=== PATIENT | male | born 1980 | race Caucasian/White ===

== ENCOUNTER 2019-04-15 17:50 | Inpatient (IN) ==
[2019-04-15] MEDS ORDERED: LORazepam 1 MG TAB SL STA (18:04)
[2019-04-15] MEDS ORDERED: MULTI-VITAMIN INFUSION 10 ML, THIAMINE HCL 100 MG, FOLIC ACID 1 MG in SODIUM CHLORIDE 0... IV ONE (18:04)
[2019-04-15] MEDS ORDERED: ONDANSETRON INJ 2 MG/ML 2 ML VIAL IV STA (18:06)
[2019-04-15] MEDS ORDERED: LORazepam 1 MG TAB ONE (18:06)
[2019-04-15] MEDS: LORazepam 2 MG/ML VIAL (IM USE) IM STA ×2 (18:16→19:28)
[2019-04-15 18:22] LABS: Basophils # (auto) 0.03 K/uL (0-0.2); Basophils % (auto) 0.3 %; Eosinophils # (auto) 0.01 K/uL (0-0.5); Eosinophils % (auto) 0.1 %; Hematocrit (blood only) 52.8 % (42-52); Hemoglobin 18.9 g/dL (14.0-18.0); Immature Granulocytes # (auto) 0.02 K/uL (0.00-0.02); Immature Granulocytes % (auto) 0.2 %; Lymphocytes % (auto) 17.8 %; Mean Corpuscular Hemoglobin 33.5 pg (25-34); Mean Corpuscular Hgb Conc 35.8 g/dL (32-36); Mean Corpuscular Volume 93.5 fL (80-100); Mean Platelet Volume 9.9 fL (7.4-10.4); Monocytes # (auto) 0.84 K/uL (0.11-0.59); Monocytes % (auto) 9.4 %; Neutrophils # (auto) 6.48 K/uL (1.4-6.5); Neutrophils % (auto) 72.2 %; Platelet Count 242 K/uL (130-400); RDW Coefficient of Variation 12.3 % (11.5-14.5); RDW Standard Deviation 41.9 fL (36.4-46.3); Red Blood Count 5.65 M/uL (4.7-6.1); White Blood Count 8.98 K/uL (4.8-10.8)
[2019-04-15 18:26] LABS: Appearance Urine Clear (Clear); Bacteria Urine Automated Negative (Negative); Blood Urine Negative (Negative); Color Urine Orange; Epithelial Cell Urine Auto >30 /lpf (0-5); Glucose Urine UA Negative (Negative); Ketones Urine 2+ (Negative); Leukocyte Esterase Urine 1+ (Negative); Nitrite Urine Positive (Negative); RBC Urine Automated 0-4 /hpf (0-4); Specific Gravity Urine 1.027 (1.000-1.030); Urobilinogen Urine Negative (Negative); pH Urine 8.5 (4.5-7.5)
[2019-04-15 18:32] LABS: Bilirubin Urine 1+ (Negative); Protein Urine Trace (Negative)
[2019-04-15 18:33] LABS: Ictotest Urine Positive (Negative)
[2019-04-15 18:35] LABS: Sulfosalicylic Acid Urine Positive (Negative)
[2019-04-15 18:36] LABS: Mucus Urine Present (None Prsent)
[2019-04-15 18:38] LABS: Cast Urine Automated 0 /lpf (0-5)
[2019-04-15 18:42] LABS: Albumin Level 4.9 gm/dl (3.4-5.0); BUN Creatinine Ratio 9.1 (10-20); Calcium 10.2 mg/dl (8.5-10.1); Creatinine Clr Calc Pharmacy 95.5 ml/min; Est GFR (African American) 86.6; Est GFR (Non-African American) 74.7; Potassium 4.1 mmol/L (3.5-5.1)
[2019-04-15 18:45] LABS: Bilirubin,Total 1.4 mg/dl (0.2-1); Total Protein 9.9 gm/dl (6.4-8.2)
[2019-04-15] MEDS ORDERED: SODIUM CHLORIDE 0.9% 1000ML 1,000 ML IV ONE (18:52)
[2019-04-15] MEDS ORDERED: FAMOTIDINE 20 MG in SYRINGE 3 ML IV STA (18:55)
--- NOTE | 2019-04-15 18:59 | Emergency Department Note ---
Entered by Nereyda Coffey acting as a scribe for Lida Calles MD History of Present Illness General Chief complaint: Alcohol Withdrawal Stated complaint: RELAPSE FROM ALCOHOL Source: patient History of Present Illness Onset (ago): hour(s) (earlier today) Location: head (general) Pain Consistency: + constant Maximum Pain Intensity: 0 Quality: + other (alcohol withdrawal) Associated symptoms: + loss of appetite, + nausea/vomiting and + other (shaking) The patient is a 39 year old male who presents to the Emergency Room with complaints of constant alcohol withdrawal beginning earlier today. The patient reports vomiting and shaking. He states he has not eaten in 2 days. He states that he was in rehab at [facility] 1.5 - 2 years ago. He reports he started drinking again 3 months ago. The patient reports drinking a 12 pack of beer per day. The patient denies every having a seizure. He reports smoking marijuana once in a while, but denies any time recently. He denies tobacco use. The patient states he is unsure if he wants to go back to a rehab. Home Medications Home Medications Medication Instructions Recorded Confirmed Type bupropion HCl 300 mg PO DAILY 04/15/19 04/15/19 History escitalopram oxalate 20 mg PO DAILY 04/15/19 04/15/19 History lisinopril-hydrochlorothiazide 1 tab PO DAILY 04/15/19 04/15/19 History Allergies Allergy/AdvReac Type Severity Reaction Status Date / Time No Known Allergies Allergy Verified 04/15/19 18:56 Past Med/Surg History Medical History (Updated 04/15/19 @ 22:57 by Becca Shearer RN) Abnormal LFTs (Inactive) Anxiety (Inactive) History of ETOH abuse Surgical History No pertinent past surgical history Family History Other Anxiety Depression Social History Preferred Language: Malagasy Communication Ability: Effective Weld Engineer Required: No Beliefs That Will Affect Care: None Current Living Situation: Other Other Information That Helps Us Care for You: No Feels Safe at Home: Yes Safety Concerns: Feels Safe At This Time Smoking Status: Unknown if ever smoked Hx Alcohol Use: No Hx Substance Use: No Review of Systems See HPI for pertinent positives & negatives. and A total of 10 systems reviewed and were otherwise negative Physical Exam Vital Signs Vital Signs - 24 hr 04/15/19 17:54 04/15/19 18:27 04/15/19 19:00 Temperature 36.4 C L Temperature Source Oral Pulse Rate 136 H Pulse Rate [Right Finger] 112 H 97 H Pulse Rhythm [Right Finger] Regular Respiratory Rate 20 26 H 22 Respiratory Effort / Characteristics Non-Labored Respiratory Depth Normal Blood Pressure 181/110 H Blood Pressure [Right Arm] 181/113 H 182/104 H Blood Pressure Mean 133 Blood Pressure Mean [Right Arm] 135 130 Blood Pressure Position [Right Arm] Lying Lying Pulse Oximetry 95 98 98 Oxygen Delivery Method Room Air Sepsis Recent Fever Within 48 Hours No Sepsis New/Unexplained Change in Mental Status No Sepsis Action Taken by Nursing No Action Required 04/15/19 19:30 04/15/19 20:00 04/15/19 20:30 Temperature 36.5 C Temperature Source Oral Pulse Rate Pulse Rate [Right Finger] 105 H 104 H 96 H Pulse Rhythm [Right Finger] Respiratory Rate 20 20 20 Respiratory Effort / Characteristics Respiratory Depth Blood Pressure Blood Pressure [Right Arm] 146/101 H 161/103 H 182/87 H Blood Pressure Mean Blood Pressure Mean [Right Arm] 116 122 118 Blood Pressure Position [Right Arm] Sitting Sitting Pulse Oximetry 98 98 98 Oxygen Delivery Method Sepsis Recent Fever Within 48 Hours Sepsis New/Unexplained Change in Mental Status Sepsis Action Taken by Nursing 04/15/19 21:03 04/15/19 21:32 Temperature 36.9 C Temperature Source Oral Pulse Rate Pulse Rate [Right Finger] 94 H 104 H Pulse Rhythm [Right Finger] Respiratory Rate 18 20 Respiratory Effort / Characteristics Respiratory Depth Blood Pressure Blood Pressure [Right Arm] 145/89 H 153/93 H Blood Pressure Mean Blood Pressure Mean [Right Arm] 107 113 Blood Pressure Position [Right Arm] Lying Pulse Oximetry 98 98 Oxygen Delivery Method Room Air Sepsis Recent Fever Within 48 Hours Sepsis New/Unexplained Change in Mental Status Sepsis Action Taken by Nursing Vital signs reviewed. Tachycardic, hypertensive General: Agitated 39-year-old male, involuntary tremors HEENT: Conjunctiva injection bilaterally, no scleral icterus, PERRLA, neck supple. Atraumatic. Cardiovascular: Tachycardic rate and regular rhythm, no extra sounds. Pulmonary: Clear to auscultation bilaterally, normal work of breathing. Abdomen: Soft, nontender, nondistended, positive bowel sounds. Musculoskeletal: Atraumatic, no peripheral edema. Neurologic: Patient awake alert and oriented x 3 Skin: Warm, diaphoretic, no rash Course Course 1800: Past medical records reviewed. The patient was evaluated in room C06. A complete history and physical exam was performed. 2014: Upon reevaluation, the patient is feeling better. 2039: Upon reevaluation, I discussed findings and results with the patient. He verbalized agreement of the treatment plan. I spoke with Dr. Guevara of the [facility] Hospitalist Service. The patient will be evaluated for further management and care. Administered Medications Diazepam (Valium) 20 mg PO Q8 RADHA Stop: 04/16/19 14:01 Last Admin: 04/15/19 22:53 Dose: 20 mg Documented by: [id number] Enoxaparin Sodium (Lovenox) 40 mg SQ Q24H RADHA Stop: 05/15/19 22:31 Last Admin: 04/15/19 23:41 Dose: 40 mg Documented by: [id number] Lactated Ringer's (Lr) 1,000 mls @ 120 mls/hr IV .Q8H20M RADHA Stop: 05/15/19 22:31 Last Admin: 04/15/19 22:48 Dose: 120 mls/hr Documented by: [id number] Discontinued Medications Al Hydrox/Mg Hydrox/Simethicone 18 ml/ Lidocaine HCl 6 ml/ BARCODE IDENTIFIER 1 ea 0 ml PO ONE ONE Stop: 04/15/19 23:01 Last Admin: 04/15/19 22:53 Dose: 24 ml Documented by: [id number] Multivitamins 10 ml/ Thiamine HCl 100 mg/ Folic Acid 1 mg/Sodium Chloride 1,011.2 mls @ 1,011.2 mls/hr IV .Q1H ONE Stop: 04/15/19 19:03 Last Infusion: 04/15/19 19:47 Dose: 0 mls/hr Documented by: [id number] Admin: 04/15/19 18:33 Dose: 1,011.2 mls/hr Documented by: [id number] Sodium Chloride (Nss 1000ml) 1,000 mls @ 999 mls/hr IV .Q1H1M ONE Stop: 04/15/19 19:52 Last Infusion: 04/15/19 20:49 Dose: 0 mls/hr Documented by: [id number] Admin: 04/15/19 19:01 Dose: 999 mls/hr Documented by: [id number] Famotidine 20 mg/ Syringe 5 mls @ 2.5 mls/min IV NOW STA Stop: 04/15/19 18:56 Last Admin: 04/15/19 19:36 Dose: 2.5 mls/min Documented by: [id number] Lorazepam (Ativan) 2 mg IM NOW STA Stop: 04/15/19 18:00 Last Admin: 04/15/19 19:28 Dose: 2 mg Documented by: [id number] Lorazepam (Ativan) 2 mg SL NOW STA Stop: 04/15/19 18:05 Last Admin: 04/15/19 18:16 Dose: 2 mg Documented by: [id number] Lorazepam (Ativan) Confirm Administered Dose 2 mg .ROUTE .STK-MED ONE Stop: 04/15/19 18:07 Last Admin: 04/15/19 18:16 Dose: Not Given Documented by: [id number] Ondansetron HCl (Zofran) 4 mg IV NOW STA Stop: 04/15/19 18:07 Last Admin: 04/15/19 18:18 Dose: 4 mg Documented by: [id number] Critical Care Time Critical Care Time: Yes I have personally spent greater than 30 minutes of critical care time in the direct management of this patient. This includes bedside care, interpretation of diagnostic studies, and testing, discussion with consultants, patient, and family members, and other required patient management activities. This 30 minutes is in excess of all separately billable procedures. Medical Decision Making Differential Diagnosis Differential diagnosis:Etiologies such as toxicologic, alcohol withdrawal, infection, hypoglycemia, electrolyte abnormalities, cardiac sources, intracerebral event, neurologic, as well as others were entertained. Medical Records Attestation: I reviewed the patient's medical records. Home Medications Current Medication List: was personally reviewed by me Laboratory Data Attestation: I reviewed the patient's lab results. Result diagrams: 04/15/19 18:12 04/15/19 18:12 Lab Results 04/15/19 04/15/19 04/15/19 Range/Units 18:11 18:12 18:12 WBC 8.98 (4.8-10.8) K/uL RBC 5.65 (4.7-6.1) M/uL Hgb 18.9 H (14.0-18.0) g/dL Hct 52.8 H (42-52) % MCV 93.5 (80-100) fL MCH 33.5 (25-34) pg MCHC 35.8 (32-36) g/dL RDW Std Deviation 41.9 (36.4-46.3) fL RDW Coeff of Francisca 12.3 (11.5-14.5) % Plt Count 242 (130-400) K/uL MPV 9.9 (7.4-10.4) fL Immature Gran % (Auto) 0.2 % Neut % (Auto) 72.2 % Lymph % (Auto) 17.8 % [place] % (Auto) 9.4 % Eos % (Auto) 0.1 % Baso % (Auto) 0.3 % Immature Gran # (Auto) 0.02 (0.00-0.02) K/uL Neut # (Auto) 6.48 (1.4-6.5) K/uL Lymph # (Auto) 1.60 (1.2-3.4) K/uL [place] # (Auto) 0.84 H (0.11-0.59) K/uL Eos # (Auto) 0.01 (0-0.5) K/uL Baso # (Auto) 0.03 (0-0.2) K/uL Sodium 137 (136-145) mmol/L Potassium 4.1 (3.5-5.1) mmol/L Chloride 100 (98-107) mmol/L Carbon Dioxide 30 (21-32) mmol/L Anion Gap 7.0 (3-11) BUN 11 (7-18) mg/dl Creatinine 1.22 (0.6-1.4) mg/dl Est Cr Clr Drug Dosing 95.5 ml/min Est GFR ( Amer) 86.6 Est GFR (Non-Af Amer) 74.7 BUN/Creatinine Ratio 9.1 L (10-20) Glucose 106 H (70-99) mg/dl POC Glucose (70-99) Calcium 10.2 H (8.5-10.1) mg/dl Total Bilirubin 1.4 H (0.2-1) mg/dl AST 207 H (15-37) U/L ALT 199 H (12-78) U/L Alkaline Phosphatase 84 (45-117) U/L Total Creatine Kinase (39-308) U/L Total Protein 9.9 H (6.4-8.2) gm/dl Albumin 4.9 (3.4-5.0) gm/dl Globulin 5.0 H (2.5-4.0) gm/dl Albumin/Globulin Ratio 1.0 (0.9-2) Folate (>5.38) ng/ml Urine Color [place] Urine Appearance Clear (Clear) Urine pH 8.5 H (4.5-7.5) Ur Specific [place] 1.027 (1.000-1.030) Urine Protein Trace H (Negative) Urine Glucose (UA) Negative (Negative) Urine Ketones 2+ H (Negative) Urine Blood Negative (Negative) Urine Nitrite Positive A (Negative) Urine Bilirubin 1+ H (Negative) Urine Urobilinogen Negative (Negative) Ur Leukocyte Esterase 1+ H (Negative) Urine WBC (Auto) 1-5 (0-5) /hpf Urine RBC (Auto) 0-4 (0-4) /hpf U Hyaline Cast (Auto) 0 (0-5) /lpf U Epithel Cells (Auto) >30 H (0-5) /lpf Urine Bacteria (Auto) Negative (Negative) Ur Renal Epithelial Cell 5-10 H (0-5) /lpf Urine Mucus Present A (None Prsent) Ethyl Alcohol mg/dL (0-3) mg/dl Hep Bs Antigen (Neg) Hepatitis C Antibody (Neg) 04/15/19 04/15/19 04/15/19 Range/Units 18:12 18:12 18:15 WBC (4.8-10.8) K/uL RBC (4.7-6.1) M/uL Hgb (14.0-18.0) g/dL Hct (42-52) % MCV (80-100) fL MCH (25-34) pg MCHC (32-36) g/dL RDW Std Deviation (36.4-46.3) fL RDW Coeff of Francisca (11.5-14.5) % Plt Count (130-400) K/uL MPV (7.4-10.4) fL Immature Gran % (Auto) % Neut % (Auto) % Lymph % (Auto) % [place] % (Auto) % Eos % (Auto) % Baso % (Auto) % Immature Gran # (Auto) (0.00-0.02) K/uL Neut # (Auto) (1.4-6.5) K/uL Lymph # (Auto) (1.2-3.4) K/uL [place] # (Auto) (0.11-0.59) K/uL Eos # (Auto) (0-0.5) K/uL Baso # (Auto) (0-0.2) K/uL Sodium (136-145) mmol/L Potassium (3.5-5.1) mmol/L Chloride (98-107) mmol/L Carbon Dioxide (21-32) mmol/L Anion Gap (3-11) BUN (7-18) mg/dl Creatinine (0.6-1.4) mg/dl Est Cr Clr Drug Dosing ml/min Est GFR ( Amer) Est GFR (Non-Af Amer) BUN/Creatinine Ratio (10-20) Glucose (70-99) mg/dl POC Glucose 107 H (70-99) Calcium (8.5-10.1) mg/dl Total Bilirubin (0.2-1) mg/dl AST (15-37) U/L ALT (12-78) U/L Alkaline Phosphatase (45-117) U/L Total Creatine Kinase 567 H (39-308) U/L Total Protein (6.4-8.2) gm/dl Albumin (3.4-5.0) gm/dl Globulin (2.5-4.0) gm/dl Albumin/Globulin Ratio (0.9-2) Folate (>5.38) ng/ml Urine Color Urine Appearance (Clear) Urine pH (4.5-7.5) Ur Specific [place] (1.000-1.030) Urine Protein (Negative) Urine Glucose (UA) (Negative) Urine Ketones (Negative) Urine Blood (Negative) Urine Nitrite (Negative) Urine Bilirubin (Negative) Urine Urobilinogen (Negative) Ur Leukocyte Esterase (Negative) Urine WBC (Auto) (0-5) /hpf Urine RBC (Auto) (0-4) /hpf U Hyaline Cast (Auto) (0-5) /lpf U Epithel Cells (Auto) (0-5) /lpf Urine Bacteria (Auto) (Negative) Ur Renal Epithelial Cell (0-5) /lpf Urine Mucus (None Prsent) Ethyl Alcohol mg/dL < 3.0 (0-3) mg/dl Hep Bs Antigen (Neg) Hepatitis C Antibody (Neg) 04/15/19 04/15/19 Range/Units 19:14 19:14 WBC (4.8-10.8) K/uL RBC (4.7-6.1) M/uL Hgb (14.0-18.0) g/dL Hct (42-52) % MCV (80-100) fL MCH (25-34) pg MCHC (32-36) g/dL RDW Std Deviation (36.4-46.3) fL RDW Coeff of Francisca (11.5-14.5) % Plt Count (130-400) K/uL MPV (7.4-10.4) fL Immature Gran % (Auto) % Neut % (Auto) % Lymph % (Auto) % [place] % (Auto) % Eos % (Auto) % Baso % (Auto) % Immature Gran # (Auto) (0.00-0.02) K/uL Neut # (Auto) (1.4-6.5) K/uL Lymph # (Auto) (1.2-3.4) K/uL [place] # (Auto) (0.11-0.59) K/uL Eos # (Auto) (0-0.5) K/uL Baso # (Auto) (0-0.2) K/uL Sodium (136-145) mmol/L Potassium (3.5-5.1) mmol/L Chloride (98-107) mmol/L Carbon Dioxide (21-32) mmol/L Anion Gap (3-11) BUN (7-18) mg/dl Creatinine (0.6-1.4) mg/dl Est Cr Clr Drug Dosing ml/min Est GFR ( Amer) Est GFR (Non-Af Amer) BUN/Creatinine Ratio (10-20) Glucose (70-99) mg/dl POC Glucose (70-99) Calcium (8.5-10.1) mg/dl Total Bilirubin (0.2-1) mg/dl AST (15-37) U/L ALT (12-78) U/L Alkaline Phosphatase (45-117) U/L Total Creatine Kinase (39-308) U/L Total Protein (6.4-8.2) gm/dl Albumin (3.4-5.0) gm/dl Globulin (2.5-4.0) gm/dl Albumin/Globulin Ratio (0.9-2) Folate > 24.00 (>5.38) ng/ml Urine Color Urine Appearance (Clear) Urine pH (4.5-7.5) Ur Specific [place] (1.000-1.030) Urine Protein (Negative) Urine Glucose (UA) (Negative) Urine Ketones (Negative) Urine Blood (Negative) Urine Nitrite (Negative) Urine Bilirubin (Negative) Urine Urobilinogen (Negative) Ur Leukocyte Esterase (Negative) Urine WBC (Auto) (0-5) /hpf Urine RBC (Auto) (0-4) /hpf U Hyaline Cast (Auto) (0-5) /lpf U Epithel Cells (Auto) (0-5) /lpf Urine Bacteria (Auto) (Negative) Ur Renal Epithelial Cell (0-5) /lpf Urine Mucus (None Prsent) Ethyl Alcohol mg/dL (0-3) mg/dl Hep Bs Antigen Neg (Neg) Hepatitis C Antibody Neg (Neg) Blood Pressure Blood Pressure Findings: Elevated blood pressure Blood Pressure Disposition: further management by hospitalist NEHEMIAH Narrative This patient was evaluated and appeared to be in no significant distress. 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 IV access was obtained and laboratory work was drawn. 1 L IV normal saline solution was administered. Patient was medicated with a banana bag, IV Zofran, IV Pepcid and additional 2 mg of IV Ativan in the emergency department. He is found to have elevated liver enzymes with the AST slightly greater than the ALT. Hepatitis panel has been sent. Patient was feeling much improved however remained hypertensive. He states he has not had his lisinopril/HCTZ x2 days. He had no further vomiting and was able to take his home dose by mouth in the ED. Patient states he is not convinced he would like to go to rehab at this time. He is looking forward to the holidays with his family. He has requested detox over the next 1 to 2 days and will require additional therapy for acute alcohol withdrawal. Impression & Plan Alcohol withdrawal Discharge Plan Visit Data *Final* Discharge Date/Time: 04/15/19 22:17 Chief Complaint: Alcohol Withdrawal Stated Complaint: RELAPSE FROM ALCOHOL ED Provider: Lida Calles Discharge Problem: Alcohol withdrawal Patient Disposition: Admitted As Inpatient Discharge Instructions Interventions: ED Discharge Assessment Last Done: 04/15/19 22:17 Discharge Problem: Alcohol withdrawal Qualifiers: Complication of substance-induced condition: uncomplicated Qualified Code(s): F10.230 - Alcohol dependence with withdrawal, uncomplicated The scribe's documentation has been prepared under my direction and personally reviewed by me in its entirety. I confirm that the note above accurately reflects all work, treatment, procedures, and medical decision making performed by me.
[2019-04-15 20:25] LABS: Hepatitis B Surface Antigen Neg (Neg)
[2019-04-15 20:53] LABS: Hepatitis C IgG 13Yrs+Old_Rflx Neg (Neg)
--- NOTE | 2019-04-15 22:20 | History & Physical Report ---
Date of Service April 15, 2019 Assessment & Plan (1) Alcohol withdrawal: 39-year-old male was admitted on 15 April 2019 for N/V and alcohol withdrawal. Nausea/Vomiting, Alcohol withdrawal: History of rehab about two years ago. Says drinks 12 pack of beer per day, last around 0300 on Dec. Notes primarily vomiting with a couple of loose stools. Gastroenteritis is in the differential as well. Denies abdominal pain and is non-tender on exam. - In ED, afebrile, at times tachycardic and tachypneic, hypertensive, with normal room SpO2. WBC 9. Hemoglobin 19. Calcium 10.2. Ethanol was undetectable. - In ED, given multivitamin/thiamine/folic acid IVF, Ativan, Zofran, famotidine, and normal saline IVF. - Will start on a diazepam fixed-dose schedule: 20 mg PO q8h x 3 doses, then 10 mg PO q6h x 4 doses. [Though not ordered on admit, UTD mentions 10 mg BID on day 3 and 10 mg q PM on day 4.] - Continue with AWSS here. Ativan prn for acutely worsening symptoms. On scheduled thiamine and folate. We will try a GI cocktail for some GERD-like symptoms related to the vomiting. Elevated transaminases: Mild elevations in AST, ALT, total bilirubin. Previous abdominal ultrasound in February 2019 noted hepatic steatosis. Likely related to alcohol use. ED ordered hepatitis panel which is pending. Lipid panel in Feb 2019 was rather good. Elevated creatinine kinase: Admit CK 567. Likely related to relative dehydration. - Given IVF, recheck in a.m. Ongoing medical issues: - Hypertension: Continue home Lisinopril-hydrochlorothiazide. - Anxiety/depression: Continue home bupropion and escitalopram. Code status: Full code. Diet: Regular. DVT prophy: Lovenox. PT/OT: Deferred. Disbo: Admit to PCU. (2) Nausea and vomiting: (3) Transaminitis: (4) Elevated creatine kinase: (5) Hypertension: (6) Anxiety and depression: History of Present Illness Primary Care Provider: Nickolas Lopez 39-year-old male requests help with alcohol issues. Patient says he has a history of alcoholism including a previous round of inpatient rehab about 2 years ago. He restarted drinking about 3 months ago and most recently has been drinking 12 beers per day, last drink around 3 AM on day of admission (21Dec). Patient notes decreased food intake over the past 48 hours along with a couple looser non-bloody stools but denies any overt abdominal pain. Has had multiple episodes of non-bloody vomiting over the past couple days as well. Otherwise, he notes his only other symptom is an acid feeling in his mouth following vomiting. Has noted a bit of intention tremor. No noted headache or visual/auditory disturbances. No other acute concerns raised. When asked, patient says he may be interested in rehab closer to his parents place but is not completely decided on this. - Past medical history includes alcohol abuse and withdrawal, hypertension, anxiety and depression. - No noted past surgical history. - Social history includes denying tobacco use. Alcohol intake as above. Occasional marijuana use (and previously positive for ecstasy). 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 Allergies Allergy/AdvReac Type Severity Reaction Status Date / Time No Known Allergies Allergy Verified 04/15/19 18:56 Home Medications Home Medications Medication Instructions Recorded Confirmed Type bupropion HCl 300 mg PO DAILY 04/15/19 04/15/19 History escitalopram oxalate 20 mg PO DAILY 04/15/19 04/15/19 History lisinopril-hydrochlorothiazide 1 tab PO DAILY 04/15/19 04/15/19 History Past Med/Surg History Medical History (Updated 04/15/19 @ 22:57 by Becca Shearer RN) Abnormal LFTs (Inactive) Anxiety (Inactive) History of ETOH abuse Surgical History No pertinent past surgical history Family History Other Anxiety Depression Social History Preferred Language: [place]ian Communication Ability: Effective Optical Laboratory Technician Required: No Beliefs That Will Affect Care: None Current Living Situation: Other Other Information That Helps Us Care for You: No Feels Safe at Home: Yes Safety Concerns: Feels Safe At This Time Smoking Status: Unknown if ever smoked Hx Alcohol Use: No Hx Substance Use: No Review of Systems Review of Systems: Constitutional: Denies fevers, chills, focal weakness Eyes: Denies any visual loss or diplopia ENT: Denies any ear/nose/throat pain or difficulty speaking or swallowing Respiratory: Denies any dyspnea, cough, hemoptysis Cardiovascular: Denies any chest pain or feeling of edema Gastrointestinal: Positive nausea and vomiting. Some loose stools. Denies abdominal pain. Musculoskeletal: Denies any acute extremity pains, myalgias, or focal weakness Skin: Denies any known acute rashes or lesions Neuro: Denies any headache, acute focal weakness or numbness, or difficulties with speech or swallow. Positive intention tremor. Psych: Denies any recent depression or anxiety Endocrine: Denies any heat or cold intolerance, changes in urination. Hematologic: Denies any easy bleeding or bruising Physical Exam Physical Exam: GENERAL: Awake, alert, well-appearing, speaking fluently and easily in full sentences, in no acute distress. HENT: Normocephalic, atraumatic. Oropharynx unremarkable. EYES: Normal conjunctiva. Sclera non-icteric. NECK: Inspection normal. Supple and full ROM. No nuchal rigidity. CARDIAC: +S1S2 RRR, no murmurs. RESPIRATORY: Clear to auscultation. No wheezes or rales. Normal respiratory effort. GI: +BS, soft, non-distended. No tenderness to palpation. No rebound or guarding. EXTREMITIES: No pedal edema or calf tenderness. Moving all extremities naturally and easily. NEURO: No gross neuro deficits. He does have a mild bilateral arm intention tremor. No present tremor at rest. Results & Data Vital Signs (Past 12 Hours) Vital Signs Temp Pulse Pulse Resp BP BP Pulse Ox 04/15/19 22:00 88 20 143/102 H 98 04/15/19 21:32 104 H 20 153/93 H 98 04/15/19 21:03 36.9 C 94 H 18 145/89 H 98 04/15/19 20:30 96 H 20 182/87 H 98 04/15/19 20:00 36.5 C 104 H 20 161/103 H 98 04/15/19 19:30 105 H 20 146/101 H 98 04/15/19 19:00 97 H 22 182/104 H 98 04/15/19 18:27 112 H 26 H 181/113 H 98 04/15/19 17:54 36.4 C L 136 H 20 181/110 H 95 Laboratory Results 04/15/19 04/15/1919 Range/Units 19:14 19:14 19:14 WBC (4.8-10.8) K/uL RBC (4.7-6.1) M/uL Hgb (14.0-18.0) g/dL Hct (42-52) % MCV (80-100) fL MCH (25-34) pg MCHC (32-36) g/dL RDW Std Deviation (36.4-46.3) fL RDW Coeff of Francisca (11.5-14.5) % Plt Count (130-400) K/uL MPV (7.4-10.4) fL Immature Gran % (Auto) % Neut % (Auto) % Lymph % (Auto) % [place] % (Auto) % Eos % (Auto) % Baso % (Auto) % Immature Gran # (Auto) (0.00-0.02) K/uL Neut # (Auto) (1.4-6.5) K/uL Lymph # (Auto) (1.2-3.4) K/uL [place] # (Auto) (0.11-0.59) K/uL Eos # (Auto) (0-0.5) K/uL Baso # (Auto) (0-0.2) K/uL Sodium (136-145) mmol/L Potassium (3.5-5.1) mmol/L Chloride (98-107) mmol/L Carbon Dioxide (21-32) mmol/L Anion Gap (3-11) BUN (7-18) mg/dl Creatinine (0.6-1.4) mg/dl Est Cr Clr Drug Dosing ml/min Est GFR ( Amer) Est GFR (Non-Af Amer) BUN/Creatinine Ratio (10-20) Glucose (70-99) mg/dl POC Glucose (70-99) Calcium (8.5-10.1) mg/dl Total Bilirubin (0.2-1) mg/dl AST (15-37) U/L ALT (12-78) U/L Alkaline Phosphatase (45-117) U/L Total Creatine Kinase (39-308) U/L Total Protein (6.4-8.2) gm/dl Albumin (3.4-5.0) gm/dl Globulin (2.5-4.0) gm/dl Albumin/Globulin Ratio (0.9-2) Folate > 24.00 (>5.38) ng/ml Urine Color Urine Appearance (Clear) Urine pH (4.5-7.5) Ur Specific [place] (1.000-1.030) Urine Protein (Negative) Urine Glucose (UA) (Negative) Urine Ketones (Negative) Urine Blood (Negative) Urine Nitrite (Negative) Urine Bilirubin (Negative) Urine Urobilinogen (Negative) Ur Leukocyte Esterase (Negative) Urine WBC (Auto) (0-5) /hpf Urine RBC (Auto) (0-4) /hpf U Hyaline Cast (Auto) (0-5) /lpf U Epithel Cells (Auto) (0-5) /lpf Urine Bacteria (Auto) (Negative) Ur Renal Epithelial Cell (0-5) /lpf Urine Mucus (None Prsent) Urine Myoglobin Ethyl Alcohol mg/dL (0-3) mg/dl Hepatitis A IgM Ab Pending Hep Bs Antigen Neg (Neg) Hep B Core IgM Ab Pending Hepatitis C Antibody Neg (Neg) 04/15/19 04/15/19 04/15/19 Range/Units 18:15 18:12 18:12 WBC (4.8-10.8) K/uL RBC (4.7-6.1) M/uL Hgb (14.0-18.0) g/dL Hct (42-52) % MCV (80-100) fL MCH (25-34) pg MCHC (32-36) g/dL RDW Std Deviation (36.4-46.3) fL RDW Coeff of Francisca (11.5-14.5) % Plt Count (130-400) K/uL MPV (7.4-10.4) fL Immature Gran % (Auto) % Neut % (Auto) % Lymph % (Auto) % [place] % (Auto) % Eos % (Auto) % Baso % (Auto) % Immature Gran # (Auto) (0.00-0.02) K/uL Neut # (Auto) (1.4-6.5) K/uL Lymph # (Auto) (1.2-3.4) K/uL [place] # (Auto) (0.11-0.59) K/uL Eos # (Auto) (0-0.5) K/uL Baso # (Auto) (0-0.2) K/uL Sodium (136-145) mmol/L Potassium (3.5-5.1) mmol/L Chloride (98-107) mmol/L Carbon Dioxide (21-32) mmol/L Anion Gap (3-11) BUN (7-18) mg/dl Creatinine (0.6-1.4) mg/dl Est Cr Clr Drug Dosing ml/min Est GFR ( Amer) Est GFR (Non-Af Amer) BUN/Creatinine Ratio (10-20) Glucose (70-99) mg/dl POC Glucose 107 H (70-99) Calcium (8.5-10.1) mg/dl Total Bilirubin (0.2-1) mg/dl AST (15-37) U/L ALT (12-78) U/L Alkaline Phosphatase (45-117) U/L Total Creatine Kinase 567 H (39-308) U/L Total Protein (6.4-8.2) gm/dl Albumin (3.4-5.0) gm/dl Globulin (2.5-4.0) gm/dl Albumin/Globulin Ratio (0.9-2) Folate (>5.38) ng/ml Urine Color Urine Appearance (Clear) Urine pH (4.5-7.5) Ur Specific [place] (1.000-1.030) Urine Protein (Negative) Urine Glucose (UA) (Negative) Urine Ketones (Negative) Urine Blood (Negative) Urine Nitrite (Negative) Urine Bilirubin (Negative) Urine Urobilinogen (Negative) Ur Leukocyte Esterase (Negative) Urine WBC (Auto) (0-5) /hpf Urine RBC (Auto) (0-4) /hpf U Hyaline Cast (Auto) (0-5) /lpf U Epithel Cells (Auto) (0-5) /lpf Urine Bacteria (Auto) (Negative) Ur Renal Epithelial Cell (0-5) /lpf Urine Mucus (None Prsent) Urine Myoglobin Ethyl Alcohol mg/dL < 3.0 (0-3) mg/dl Hepatitis A IgM Ab Hep Bs Antigen (Neg) Hep B Core IgM Ab Hepatitis C Antibody (Neg) 04/15/19 04/15/19 04/15/19 Range/Units 18:12 18:12 18:11 WBC 8.98 (4.8-10.8) K/uL RBC 5.65 (4.7-6.1) M/uL Hgb 18.9 H (14.0-18.0) g/dL Hct 52.8 H (42-52) % MCV 93.5 (80-100) fL MCH 33.5 (25-34) pg MCHC 35.8 (32-36) g/dL RDW Std Deviation 41.9 (36.4-46.3) fL RDW Coeff of Francisca 12.3 (11.5-14.5) % Plt Count 242 (130-400) K/uL MPV 9.9 (7.4-10.4) fL Immature Gran % (Auto) 0.2 % Neut % (Auto) 72.2 % Lymph % (Auto) 17.8 % Carson % (Auto) 9.4 % Eos % (Auto) 0.1 % Baso % (Auto) 0.3 % Immature Gran # (Auto) 0.02 (0.00-0.02) K/uL Neut # (Auto) 6.48 (1.4-6.5) K/uL Lymph # (Auto) 1.60 (1.2-3.4) K/uL [place] # (Auto) 0.84 H (0.11-0.59) K/uL Eos # (Auto) 0.01 (0-0.5) K/uL Baso # (Auto) 0.03 (0-0.2) K/uL Sodium 137 (136-145) mmol/L Potassium 4.1 (3.5-5.1) mmol/L Chloride 100 (98-107) mmol/L Carbon Dioxide 30 (21-32) mmol/L Anion Gap 7.0 (3-11) BUN 11 (7-18) mg/dl Creatinine 1.22 (0.6-1.4) mg/dl Est Cr Clr Drug Dosing 95.5 ml/min Est GFR ( Amer) 86.6 Est GFR (Non-Af Amer) 74.7 BUN/Creatinine Ratio 9.1 L (10-20) Glucose 106 H (70-99) mg/dl POC Glucose (70-99) Calcium 10.2 H (8.5-10.1) mg/dl Total Bilirubin 1.4 H (0.2-1) mg/dl AST 207 H (15-37) U/L ALT 199 H (12-78) U/L Alkaline Phosphatase 84 (45-117) U/L Total Creatine Kinase (39-308) U/L Total Protein 9.9 H (6.4-8.2) gm/dl Albumin 4.9 (3.4-5.0) gm/dl Globulin 5.0 H (2.5-4.0) gm/dl Albumin/Globulin Ratio 1.0 (0.9-2) Folate (>5.38) ng/ml Urine Color Urine Appearance (Clear) Urine pH (4.5-7.5) Ur Specific [place] (1.000-1.030) Urine Protein (Negative) Urine Glucose (UA) (Negative) Urine Ketones (Negative) Urine Blood (Negative) Urine Nitrite (Negative) Urine Bilirubin (Negative) Urine Urobilinogen (Negative) Ur Leukocyte Esterase (Negative) Urine WBC (Auto) (0-5) /hpf Urine RBC (Auto) (0-4) /hpf U Hyaline Cast (Auto) (0-5) /lpf U Epithel Cells (Auto) (0-5) /lpf Urine Bacteria (Auto) (Negative) Ur Renal Epithelial Cell (0-5) /lpf Urine Mucus (None Prsent) Urine Myoglobin Pending Ethyl Alcohol mg/dL (0-3) mg/dl Hepatitis A IgM Ab Hep Bs Antigen (Neg) Hep B Core IgM Ab Hepatitis C Antibody (Neg) 04/15/19 Range/Units 18:11 WBC (4.8-10.8) K/uL RBC (4.7-6.1) M/uL Hgb (14.0-18.0) g/dL Hct (42-52) % MCV (80-100) fL MCH (25-34) pg MCHC (32-36) g/dL RDW Std Deviation (36.4-46.3) fL RDW Coeff of Francisca (11.5-14.5) % Plt Count (130-400) K/uL MPV (7.4-10.4) fL Immature Gran % (Auto) % Neut % (Auto) % Lymph % (Auto) % [place] % (Auto) % Eos % (Auto) % Baso % (Auto) % Immature Gran # (Auto) (0.00-0.02) K/uL Neut # (Auto) (1.4-6.5) K/uL Lymph # (Auto) (1.2-3.4) K/uL [place] # (Auto) (0.11-0.59) K/uL Eos # (Auto) (0-0.5) K/uL Baso # (Auto) (0-0.2) K/uL Sodium (136-145) mmol/L Potassium (3.5-5.1) mmol/L Chloride (98-107) mmol/L Carbon Dioxide (21-32) mmol/L Anion Gap (3-11) BUN (7-18) mg/dl Creatinine (0.6-1.4) mg/dl Est Cr Clr Drug Dosing ml/min Est GFR ( Amer) Est GFR (Non-Af Amer) BUN/Creatinine Ratio (10-20) Glucose (70-99) mg/dl POC Glucose (70-99) Calcium (8.5-10.1) mg/dl Total Bilirubin (0.2-1) mg/dl AST (15-37) U/L ALT (12-78) U/L Alkaline Phosphatase (45-117) U/L Total Creatine Kinase (39-308) U/L Total Protein (6.4-8.2) gm/dl Albumin (3.4-5.0) gm/dl Globulin (2.5-4.0) gm/dl Albumin/Globulin Ratio (0.9-2) Folate (>5.38) ng/ml Urine Color [place] Urine Appearance Clear (Clear) Urine pH 8.5 H (4.5-7.5) Ur Specific [place] 1.027 (1.000-1.030) Urine Protein Trace H (Negative) Urine Glucose (UA) Negative (Negative) Urine Ketones 2+ H (Negative) Urine Blood Negative (Negative) Urine Nitrite Positive A (Negative) Urine Bilirubin 1+ H (Negative) Urine Urobilinogen Negative (Negative) Ur Leukocyte Esterase 1+ H (Negative) Urine WBC (Auto) 1-5 (0-5) /hpf Urine RBC (Auto) 0-4 (0-4) /hpf U Hyaline Cast (Auto) 0 (0-5) /lpf U Epithel Cells (Auto) >30 H (0-5) /lpf Urine Bacteria (Auto) Negative (Negative) Ur Renal Epithelial Cell 5-10 H (0-5) /lpf Urine Mucus Present A (None Prsent) Urine Myoglobin Ethyl Alcohol mg/dL (0-3) mg/dl Hepatitis A IgM Ab Hep Bs Antigen (Neg) Hep B Core IgM Ab Hepatitis C Antibody (Neg) Medications Administered Discontinued Medications Multivitamins 10 ml/ Thiamine HCl 100 mg/ Folic Acid 1 mg/Sodium Chloride 1,011.2 mls @ 1,011.2 mls/hr IV .Q1H ONE Stop: 04/15/19 19:03 Last Infusion: 04/15/19 19:47 Dose: 0 mls/hr Documented by: [id number] Admin: 04/15/19 18:33 Dose: 1,011.2 mls/hr Documented by: [id number] Sodium Chloride (Nss 1000ml) 1,000 mls @ 999 mls/hr IV .Q1H1M ONE Stop: 04/15/19 19:52 Last Infusion: 04/15/19 20:49 Dose: 0 mls/hr Documented by: [id number] Admin: 04/15/19 19:01 Dose: 999 mls/hr Documented by: [id number] Famotidine 20 mg/ Syringe 5 mls @ 2.5 mls/min IV NOW STA Stop: 04/15/19 18:56 Last Admin: 04/15/19 19:36 Dose: 2.5 mls/min Documented by: [id number] Lorazepam (Ativan) 2 mg IM NOW STA Stop: 04/15/19 18:00 Last Admin: 04/15/19 19:28 Dose: 2 mg Documented by: [id number] Lorazepam (Ativan) 2 mg SL NOW STA Stop: 04/15/19 18:05 Last Admin: 04/15/19 18:16 Dose: 2 mg Documented by: [id number] Lorazepam (Ativan) Confirm Administered Dose 2 mg .ROUTE .STK-MED ONE Stop: 04/15/19 18:07 Last Admin: 04/15/19 18:16 Dose: Not Given Documented by: [id number] Ondansetron HCl (Zofran) 4 mg IV NOW STA Stop: 04/15/19 18:07 Last Admin: 04/15/19 18:18 Dose: 4 mg Documented by: [id number] Code Status & VTE Plan Code Status Full code VTE Prophylaxis Plan VTE Prophylaxis will be ordered: Yes Supervising Physician Co-Signing Physician Notes Patient seen and examined, chart reviewed, case discussed with Dr. Alexandre and I agree with his assessment and plan as documented above. Briefly, patient is a 39-year-old male with history of anxiety and alcohol abuse presenting with nausea, vomiting and alcohol withdrawal. On physical exam he is tachycardic, mildly hypertensive, otherwise stable. Generalresting comfortably, mildly tremulous, nontoxic in appearance Skinwarm/dry/intact, no rashes or lesions HEENTnormocephalic/atraumatic, pupils equal and reactive to light, extraocular muscles intact, no scleral icterus or jaundice, neck supple, no JVD Heart+ S1/S2, regular, tachycardic, no murmur/rub/gallop Lungsequal air entry bilaterally no rales/rhonchi/wheezes Abdomen+ bowel sounds, soft, NT/ND Extremitieswarm, well-perfused, no clubbing/cyanosis/edema, 2+ palpable pulses Labs and images reviewed significant for elevated hemoglobin and hematocrit at 18.9 and 52.8, respectively. Calcium = 10.2, CK = 567, T bili = 1.4, AST = 207, ALT = 199 Assessment/[id number] male presenting with nausea/vomiting and alcohol withdrawal Admit to medical service telemetry monitoring Valium 20 mg p.o. every 8 then taper Alcohol withdrawal severity scale with IV Ativan as needed Continue home medicationsbupropion, escitalopram, lisinopril/HCTZ Remainder of plan as above Resident Activity Tracking Resident Involvement: Resident Care Provided Care Provided: Adult Hospital Medicine (1) Alcohol withdrawal Complication of substance-induced condition: uncomplicated Qualified Code(s): F10.230 - Alcohol dependence with withdrawal, uncomplicated
[2019-04-15] MEDS ORDERED: ONDANSETRON INJ 2 MG/ML 2 ML VIAL IV PRN (22:32)
[2019-04-15] MEDS ORDERED: LORazepam 1 MG/2 ML VIAL IV PRN (22:32)
[2019-04-15] MEDS: LACTATED RINGER'S 1,000 ML IV SCH (22:48)
[2019-04-15] MEDS: diazePAM 5 MG TABLET PO SCH (22:53)
[2019-04-15] MEDS ORDERED: ALUMINUM/MAGNESIUM SUSP 18 ML, LIDOCAINE HCL VISCOUS 2% 6 ML, BARCODE IDENTIFIER 1 EA PO ONE (23:00)
[2019-04-15] MEDS: ENOXAPARIN INJ 40 MG/0.4 ML SYR SQ SCH (23:41)
--- NOTE | 2019-04-16 02:22 | Billing Data ---
Date of Service April 16, 2019 Coding Level of Care Code 07805 Initial Inpt Care Lvl 3
[2019-04-16] MEDS: diazePAM 5 MG TABLET PO SCH ×3 (05:40→21:39)
[2019-04-16] MEDS: LACTATED RINGER'S 1,000 ML IV SCH ×2 (06:58→15:02)
[2019-04-16] MEDS: LISINOPRIL/HCTZ 20/25MG 1 TAB PO SCH (08:06)
[2019-04-16] MEDS: THIAMINE HCL 100 MG TAB PO SCH (08:06)
[2019-04-16] MEDS: BuPROPion XL 300 MG TABCR PO SCH (08:06)
[2019-04-16] MEDS: FOLIC ACID 1 MG TAB PO SCH (08:06)
[2019-04-16] MEDS: ESCITALOPRAM OXALATE 20 MG TAB PO SCH (08:07)
--- NOTE | 2019-04-16 11:06 | Hospitalist Progress Note ---
Date of Service April 16, 2019 Assessment & Plan (1) Alcohol withdrawal: 39-year-old male was admitted on 15 April 2019 for N/V and alcohol withdrawal. Nausea/Vomiting, Alcohol withdrawal - History of rehab about two years ago. Drinks 12 pack of beer per day, last around 0300 on 21Dec - In ED, afebrile, at times tachycardic and tachypneic, hypertensive, with normal room SpO2. WBC 9. Hemoglobin 19. Calcium 10.2. Ethanol was undetectable -Diazepam fixed-dose schedule: 20 mg PO q8h x 3 doses, then 10 mg PO q6h x 4 doses. Per UTD, can consider 10 mg BID on day 3 and 10 mg qPM on day 4 (not ordered) -AWSS protocol. Ativan prn for acutely worsening symptoms -RADHA thiamine and folate Elevated transaminases - Mild elevations in AST, ALT, total bilirubin. -Previous abdominal ultrasound in February 2019 noted hepatic steatosis. Likely related to alcohol use - Hepatitis panel pending HTN - Continue home Lisinopril-hydrochlorothiazide Anxiety/depression - Continue home bupropion and escitalopram FEN/GI: Regular DVT prophylaxis: Lovenox Full Code Dispo: Admit to PCU. Anticipate d/c tomorrow. Pt notes that he will look into rehab tx centers himself closer to [place] where his parents live on d/c. Supervising Physician Co-Signing Physician Notes Resident Physician Supervision Note: I independently interviewed and examined the patient and verified the toro history and physical, reviewed labs and image studies, discussed the case with the resident Dr. Newman and agree with the findings and care plan. Subjective 39 yo M found in bed this AM in NAD. No reported overnight events. Denies CALHOUN, palpitations, SOB. Mild tremors. Tolerating PO intake. No other acute concerns or complaints. Review of Systems Review of Systems: All systems reviewed & are unremarkable except as noted in HPI & below Physical Exam Constitutional: WD/WN, vitals as above Eyes: PERRL, conjunctivae normal, anicteric sclerae ENMT: external ear and nose normal, oropharynx normal Respiratory: normal respiratory effort, lungs clear to auscultation Cardiovascular: RRR, no murmur, no edema Gastrointestinal (Abdomen): normal bowel sounds, soft, nontender, no hepatosplenomegaly Skin: no rashes, warm and dry Neurologic: mild intention tremor Psychiatric: A+Ox3, euthymic affect Results & Data Vital Signs (Past 12 Hours) Vital Signs Temp Pulse Resp BP Pulse Ox 04/16/19 07:46 37.0 C 88 16 142/86 H 99 04/16/19 03:06 37.1 C 87 16 145/81 H 98 Laboratory Results Laboratory Results - last 24 hr 04/15/19 04/15/19 04/15/19 18:11 18:11 18:12 WBC 8.98 RBC 5.65 Hgb 18.9 H Hct 52.8 H MCV 93.5 MCH 33.5 MCHC 35.8 RDW Std Deviation 41.9 RDW Coeff of Francisca 12.3 Plt Count 242 MPV 9.9 Immature Gran % (Auto) 0.2 Neut % (Auto) 72.2 Lymph % (Auto) 17.8 [place] % (Auto) 9.4 Eos % (Auto) 0.1 Baso % (Auto) 0.3 Immature Gran # (Auto) 0.02 Neut # (Auto) 6.48 Lymph # (Auto) 1.60 [place] # (Auto) 0.84 H Eos # (Auto) 0.01 Baso # (Auto) 0.03 Sodium Potassium Chloride Carbon Dioxide Anion Gap BUN Creatinine Est Cr Clr Drug Dosing Est GFR ( Amer) Est GFR (Non-Af Amer) BUN/Creatinine Ratio Glucose POC Glucose Calcium Total Bilirubin AST ALT Alkaline Phosphatase Total Creatine Kinase Total Protein Albumin Globulin Albumin/Globulin Ratio Folate Urine Color [place] Urine Appearance Clear Urine pH 8.5 H Ur Specific Robbins 1.027 Urine Protein Trace H Urine Glucose (UA) Negative Urine Ketones 2+ H Urine Blood Negative Urine Nitrite Positive A Urine Bilirubin 1+ H Urine Urobilinogen Negative Ur Leukocyte Esterase 1+ H Urine WBC (Auto) 1-5 Urine RBC (Auto) 0-4 U Hyaline Cast (Auto) 0 U Epithel Cells (Auto) >30 H Urine Bacteria (Auto) Negative Ur Renal Epithelial Cell 5-10 H Urine Mucus Present A Urine Myoglobin Pending Ethyl Alcohol mg/dL Hepatitis A IgM Ab Hep Bs Antigen Hep B Core IgM Ab Hepatitis C Antibody 04/15/19 04/15/19 04/15/19 18:12 18:12 18:12 WBC RBC Hgb Hct MCV MCH MCHC RDW Std Deviation RDW Coeff of Francisca Plt Count MPV Immature Gran % (Auto) Neut % (Auto) Lymph % (Auto) [place] % (Auto) Eos % (Auto) Baso % (Auto) Immature Gran # (Auto) Neut # (Auto) Lymph # (Auto) [place] # (Auto) Eos # (Auto) Baso # (Auto) Sodium 137 Potassium 4.1 Chloride 100 Carbon Dioxide 30 Anion Gap 7.0 BUN 11 Creatinine 1.22 Est Cr Clr Drug Dosing 95.5 Est GFR ( Amer) 86.6 Est GFR (Non-Af Amer) 74.7 BUN/Creatinine Ratio 9.1 L Glucose 106 H POC Glucose Calcium 10.2 H Total Bilirubin 1.4 H AST 207 H ALT 199 H Alkaline Phosphatase 84 Total Creatine Kinase 567 H Total Protein 9.9 H Albumin 4.9 Globulin 5.0 H Albumin/Globulin Ratio 1.0 Folate Urine Color Urine Appearance Urine pH Ur Specific Robbins Urine Protein Urine Glucose (UA) Urine Ketones Urine Blood Urine Nitrite Urine Bilirubin Urine Urobilinogen Ur Leukocyte Esterase Urine WBC (Auto) Urine RBC (Auto) U Hyaline Cast (Auto) U Epithel Cells (Auto) Urine Bacteria (Auto) Ur Renal Epithelial Cell Urine Mucus Urine Myoglobin Ethyl Alcohol mg/dL < 3.0 Hepatitis A IgM Ab Hep Bs Antigen Hep B Core IgM Ab Hepatitis C Antibody 04/15/19 04/15/19 04/15/19 18:15 19:14 19:14 WBC RBC Hgb Hct MCV MCH MCHC RDW Std Deviation RDW Coeff of Francisca Plt Count MPV Immature Gran % (Auto) Neut % (Auto) Lymph % (Auto) [place] % (Auto) Eos % (Auto) Baso % (Auto) Immature Gran # (Auto) Neut # (Auto) Lymph # (Auto) [place] # (Auto) Eos # (Auto) Baso # (Auto) Sodium Potassium Chloride Carbon Dioxide Anion Gap BUN Creatinine Est Cr Clr Drug Dosing Est GFR ( Amer) Est GFR (Non-Af Amer) BUN/Creatinine Ratio Glucose POC Glucose 107 H Calcium Total Bilirubin AST ALT Alkaline Phosphatase Total Creatine Kinase Total Protein Albumin Globulin Albumin/Globulin Ratio Folate > 24.00 Urine Color Urine Appearance Urine pH Ur Specific Robbins Urine Protein Urine Glucose (UA) Urine Ketones Urine Blood Urine Nitrite Urine Bilirubin Urine Urobilinogen Ur Leukocyte Esterase Urine WBC (Auto) Urine RBC (Auto) U Hyaline Cast (Auto) U Epithel Cells (Auto) Urine Bacteria (Auto) Ur Renal Epithelial Cell Urine Mucus Urine Myoglobin Ethyl Alcohol mg/dL Hepatitis A IgM Ab Hep Bs Antigen Neg Hep B Core IgM Ab Hepatitis C Antibody Neg 04/15/19 04/15/19 19:14 22:48 WBC RBC Hgb Hct MCV MCH MCHC RDW Std Deviation RDW Coeff of Francisca Plt Count MPV Immature Gran % (Auto) Neut % (Auto) Lymph % (Auto) [place] % (Auto) Eos % (Auto) Baso % (Auto) Immature Gran # (Auto) Neut # (Auto) Lymph # (Auto) [place] # (Auto) Eos # (Auto) Baso # (Auto) Sodium Potassium Chloride Carbon Dioxide Anion Gap BUN Creatinine Est Cr Clr Drug Dosing Est GFR ( Amer) Est GFR (Non-Af Amer) BUN/Creatinine Ratio Glucose POC Glucose Calcium Total Bilirubin AST ALT Alkaline Phosphatase Total Creatine Kinase Total Protein Albumin Globulin Albumin/Globulin Ratio Folate > 24.00 Urine Color Urine Appearance Urine pH Ur Specific Robbins Urine Protein Urine Glucose (UA) Urine Ketones Urine Blood Urine Nitrite Urine Bilirubin Urine Urobilinogen Ur Leukocyte Esterase Urine WBC (Auto) Urine RBC (Auto) U Hyaline Cast (Auto) U Epithel Cells (Auto) Urine Bacteria (Auto) Ur Renal Epithelial Cell Urine Mucus Urine Myoglobin Ethyl Alcohol mg/dL Hepatitis A IgM Ab Pending Hep Bs Antigen Hep B Core IgM Ab Pending Hepatitis C Antibody Medications Administered Current Inpatient Medications Bupropion HCl (Wellbutrin-Xl) 300 mg PO DAILY [facility] Stop: 05/16/19 08:59 Last Admin: 04/16/19 08:06 Dose: 300 mg Documented by: Diazepam (Valium) 20 mg PO Q8 [facility] Stop: 04/16/19 14:01 Last Admin: 04/16/19 05:40 Dose: 20 mg Documented by: Diazepam (Valium) 10 mg PO Q6 [facility] Stop: 04/17/19 18:01 Enoxaparin Sodium (Lovenox) 40 mg SQ Q24H [facility] Stop: 05/15/19 22:31 Last Admin: 04/15/19 23:41 Dose: 40 mg Documented by: Escitalopram Oxalate (Lexapro Tab) 20 mg PO DAILY [facility] Stop: 05/16/19 08:59 Last Admin: 04/16/19 08:07 Dose: 20 mg Documented by: Folic Acid (Folvite) 1 mg PO QAM [facility] Stop: 05/16/19 08:59 Last Admin: 04/16/19 08:06 Dose: 1 mg Documented by: Lisinopril/HCTZ (Prinzide 20/25mg) 1 tab PO DAILY [facility] Stop: 05/16/19 08:59 Last Admin: 04/16/19 08:06 Dose: 1 tab Documented by: Lorazepam (Ativan) 1 mg in 2 mls @ 2 mls/min IV ONE PRN; Protocol PRN Reason: EtoH Withdrawal AWSS 6-10 Stop: 05/15/19 22:31 Lactated Ringer's (Lr) 1,000 mls @ 120 mls/hr IV .Q8H20M [facility] Stop: 05/15/19 22:31 Last Admin: 04/16/19 06:58 Dose: 120 mls/hr Documented by: Ondansetron HCl (Zofran) 4 mg IV Q4H PRN PRN Reason: Nausea Stop: 05/15/19 22:31 Thiamine HCl (Vitamin B-1) [facility] Stop: 05/16/19 08:59 Last Admin: 04/16/19 08:06 Dose: 100 mg Documented by: Resident Activity Tracking Resident Involvement: Resident Care Provided Care Provided: Adult Hospital Medicine (1) Alcohol withdrawal Complication of substance-induced condition: uncomplicated Qualified Code(s): F10.230 - Alcohol dependence with withdrawal, uncomplicated
[2019-04-16] MEDS: ENOXAPARIN INJ 40 MG/0.4 ML SYR SQ SCH (21:39)
[2019-04-17] MEDS: diazePAM 5 MG TABLET PO SCH ×2 (05:22→11:49)
[2019-04-17 07:06] LABS: BUN Creatinine Ratio 17.9 (10-20); Calcium 9.2 mg/dl (8.5-10.1); Creatinine Clr Calc Pharmacy 133.9 ml/min; Est GFR (African American) 126.9; Est GFR (Non-African American) 109.5; Potassium 3.5 mmol/L (3.5-5.1)
[2019-04-17 07:14] LABS: Hematocrit (blood only) 46.1 % (42-52); Hemoglobin 16.1 g/dL (14.0-18.0); Mean Corpuscular Hemoglobin 33.4 pg (25-34); Mean Corpuscular Hgb Conc 34.9 g/dL (32-36); Mean Corpuscular Volume 95.6 fL (80-100); Mean Platelet Volume 9.9 fL (7.4-10.4); Platelet Count 118 K/uL (130-400); RDW Coefficient of Variation 12.2 % (11.5-14.5); RDW Standard Deviation 42.7 fL (36.4-46.3); Red Blood Count 4.82 M/uL (4.7-6.1)
[2019-04-17 07:15] LABS: Eosinophils # (auto) 0.04 K/uL (0-0.5); Eosinophils % (auto) 0.9 %; Immature Granulocytes # (auto) 0.01 K/uL (0.00-0.02); Immature Granulocytes % (auto) 0.2 %; Lymphocytes # (auto) 1.56 K/uL (1.2-3.4); Lymphocytes % (auto) 34.7 %; Monocytes % (auto) 8.9 %; Neutrophils # (auto) 2.49 K/uL (1.4-6.5); Neutrophils % (auto) 55.3 %; Platelet Estimate Decreased (Normal)
[2019-04-17] MEDS: THIAMINE HCL 100 MG TAB PO SCH (08:46)
[2019-04-17] MEDS: BuPROPion XL 300 MG TABCR PO SCH (08:46)
[2019-04-17] MEDS: LISINOPRIL/HCTZ 20/25MG 1 TAB PO SCH (08:46)
[2019-04-17] MEDS: ESCITALOPRAM OXALATE 20 MG TAB PO SCH (08:46)
[2019-04-17] MEDS: FOLIC ACID 1 MG TAB PO SCH (08:46)
--- NOTE | 2019-04-17 09:54 | Discharge Summary ---
Date of Service April 17, 2019 Admission HPI Per Admitting Provider 39-year-old male requests help with alcohol issues. Patient says he has a history of alcoholism including a previous round of inpatient rehab about 2 years ago. He restarted drinking about 3 months ago and most recently has been drinking 12 beers per day, last drink around 3 AM on day of admission (21Dec). Patient notes decreased food intake over the past 48 hours along with a couple looser non-bloody stools but denies any overt abdominal pain. Has had multiple episodes of non-bloody vomiting over the past couple days as well. Otherwise, he notes his only other symptom is an acid feeling in his mouth following vomiting. Has noted a bit of intention tremor. No noted headache or visual/auditory disturbances. No other acute concerns raised. When asked, patient says he may be interested in rehab closer to his parents place but is not completely decided on this. - Past medical history includes alcohol abuse and withdrawal, hypertension, anxiety and depression. - No noted past surgical history. - Social history includes denying tobacco use. Alcohol intake as above. Occasional marijuana use (and previously positive for ecstasy). 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 Admission Exam Per Admitting Provider Constitutional: WD/WN, vitals as above Eyes: PERRL, conjunctivae normal, anicteric sclerae ENMT: external ear and nose normal, oropharynx normal Respiratory: normal respiratory effort, lungs clear to auscultation Cardiovascular: RRR, no murmur, no edema Gastrointestinal (Abdomen): normal bowel sounds, soft, nontender, no hepatosplenomegaly Skin: no rashes, warm and dry Neurologic: mild intention tremor Psychiatric: A+Ox3, euthymic affect Principal Diagnosis Alcohol Withdrawal Discharge Exam General: A&Ox3. NAD. Cooperative. HEENT: Atraumatic, normocephalic. Pulm: CTAB A&P. -wheezes, -rales, -rhonchi. Symmetrical chest rise. No increase work of breathing. No respiratory distress. Cardiac: RRR, -mrg. Radial pulses intact and symmetrical. Abdominal: Nontender, nondistended, soft. BS present. CN II: Visual daniels are full to confrontation. Pupils are equal and react to light and accomidation. Visual acuity grossly intact. CN III, IV, : At primary gaze, there is no eye deviation. EoM intact without nystagmus. No visual field cuts. CN V: Facial sensation is intact to soft touch in all 3 divisions bilaterally. CN VII: No facial asymmetry, full strength to eyebrow raise, smile, eye close, and cheek puff. CN VII: Hearing is grossly intact. CN IX, X: Palate elevates symmetrically. Phonation is normal without dysarthria. CN XI: Head turning and shoulder shrug are intact CN XII: Tongue protrudes midline. Sensory: Light touch, pinprick intact in upper and low extremities without deficit or asymmetry. Strength: RUE: Shoulder flexion/extension/internal rotation/external rotation, elbow flex ion/extension, finger flexion/extension, cloth measurer strength, interosseous 5/5 LUE: Shoulder flexion/extension/internal rotation/external rotation, elbow flexion/extension, finger flexion/extension, cloth measurer strength, interosseous 5/5 RLE: Hip flexion, knee flexion/extension, ankle plantar flexion/dorsiflexion 5/5 LLE: Hip flexion, knee flexion/extension, ankle plantar flexion/dorsiflexion 5/5 Coordination: Fine finger movements are intact. There is no dysmetria on [id number] and [id number]. Discharge Data Allergies Allergy/AdvReac Type Severity Reaction Status Date / Time No Known Allergies Allergy Verified 04/15/19 18:56 Consultations 04/15/19 20:37 ED Decision to Admit Stat 04/15/19 22:32 Consult Case Management - Discharge Planning Routine Hospital Course (1) Alcohol withdrawal: Jd is a 39-year-old male with a past medical history of alcohol abuse who was admitted for acute alcohol withdrawal with nausea and vomiting. He did not have a prior history of seizures or DTs To do as outpatient: 1. Follow-up with outpatient/inpatient substance use rehab placement 2. Follow-up LFTs/Tbili 3. Follow-up med management for anxiety depression, reassess risks/benefits of bupropion Acute Alcohol withdrawal w/ tremulousness, N/V Jd is a 39-year-old male with a past medical history of alcohol abuse who was admitted for concerns of alcohol withdrawal with nausea, vomiting, and tremulousness. He was in rehab 2 years ago, but started drinking about 3 months ago due to life stressors. He had been drinking about 12 beers per day and his last drink was 3 AM on the day of admission. He expressed a desire to become alcohol free again, but was concerned about withdrawal symptoms. He was placed on withdrawal protocol and was put on a diazepam fixed dosing schedule taper with AWSS and Ativan as needed. He did not require any breakthrough doses of Ativan. He was given scheduled thiamine and folate. His GI symptoms resolved b y time of discharge. He did not experience any seizures, hallucinations, or signs of DTs during admission. At time of discharge his vital signs were stable, he was not tachycardic and was normotensive. He expressed a desire to return to [place] where his parents live (neither which uses alcohol, and have an alcohol free environment) and to pursue a inpatient versus outpatient rehab program. He expressed good insight into his illness, and recognizes that depression and anxiety are important comorbidities that will require treatment in order to help him remain sober. Reported he felt safe for discharge, and understood that he should not drive until the evening, and should defer driving if he at all feels sedated, tremulous, or his experience any withdrawal symptoms. Elevated transaminases Jd showed a mild elevation in his AST, ALT and total bilirubin in the setting of alcohol abuse. His previous abdominal ultrasound in February 2019 showed hepatic steatosis likely secondary to alcohol use. Hepatitis panel was negative for hep B antigen and hep C antibody, hep B core antibody and hep a antibody were pending. Hepatitis B vaccination was discussed during admission and []. It was felt his transaminitis was likely due to alcohol use, and he was discharged to follow-up and repeat lab testing by his PCP. HTN Jd's prior to admission lisinoprilhydrochlorothiazide were continued during admission with good Anxiety/depression Jd was continued on his [employer] doses of bupropion and escitalopram. He expresses that these gave him good benefit for his depression/anxiety. Given the importance of treating depression/anxiety and its effect on sobriety these medications were not adjusted during his admission stay, although it was discussed that bupropion may lower his seizure threshold. He has not had prior seizures or DTs, but should follow-up with his outpatient provider regarding more than an alternative agent for bupropion would be beneficial for him DVT prophylaxis He was continued on Lovenox for DVT prophylaxis during admission. No signs of DVT during admission. (2) Transaminitis: (3) Elevated creatine kinase: (4) Hypertension: (5) Nausea and vomiting: (6) Anxiety and depression: Total Time Total Time Spent Total Time Spent (In Minutes): <30 Discharge Plan Discharge Items Patient Disposition: Home - Self-Care Reason For Visit: ALCOHOL WITHDRAWAL Discharge Diagnosis: Acute alcohol withdrawal Activity: Resume your previous activity Non-emergency contact: Primary Care Provider Call non-emergency contact if: you have any medication questions, your symptoms worsen, your pain is not controlled, your pain is worsening, your pain is unusual for you and your pain is concerning for you Follow-up/Referrals: Nickolas Lopez [Primary Care Provider] - 04/21/19 10:45 am (Please, follow up with Dr. Lopez on WednesdayApril 21 at 10:45 am. *If you need to change this appointment, call the office at [phone].) Diet: Regular Addtl Attending Provider Instructions: You were admitted to the hospital for alcohol withdrawal. You were placed on withdrawal protocol, and did not experience any seizures or delirium tremens (DTs). You are being discharged home, is recommended that you follow-up for outpatient/inpatient alcohol rehab treatment as discussed during your hospitalization. You received valium during your admission to help prevent withdrawal symptoms. It is NOT safe to drive while under the effects of valium. Your valium has been held day of discharge, you should no drive until this evening. If you feel sleepy, sedated, dizzy, tremulous, or have symptoms of withdrawal please DO NOT drive until these symptoms improve. If these symptoms do not improve, please contact your PCP or call 911/have someone drive you to the emergency department for re-evaluation. You have not had medication changes made during this admission. Management of depression and anxiety are critically important for long-term recovery of alcohol use. For this reason your bupropion has not been changed, however this medication can lower seizure threshold and may be worth discussing with your primary provider. Your liver enzymes were elevated, most likely as a result of alcohol use. You should have these rechecked in approximately 1 week. You have been provided a prescription for liver function tests. Please bring this prescription to any lab, and have the results forwarded to your primary care physician within 1 week. You should be seen for follow-up appointment with your primary care provider. An appointment is being scheduled for you with Dr. Lopez, you should hear from their office within 48 hours regarding this appointment. If you do not hear regarding an appointment, or need to cancel/change your appointment, please call their office at . If you develop any new, recurrent, worsening, or concerning symptoms including fever, chills, sweats, tremulousness, passing out or nearly passing out, auditory or visual hallucinations, seizures, nausea/vomiting/diarrhea, or other symptoms please contact your primary care provider, or call 911/have a friend drive you to the emergency room for reevaluation if you are very concerned. Pending Studies at Discharge: Yes Studies:: LFTs Stand-Alone Forms: My [facility] [employer], Smoking Cessation Medications and DC Order Prescriptions: Continued lisinopril-hydrochlorothiazide 20-25 mg tablet 1 tab PO DAILY RF: 0 escitalopram oxalate 20 mg tablet 20 mg PO DAILY RF: 0 bupropion HCl 300 mg tablet extended release 24 hr 300 mg PO DAILY RF: 0 Discharge Orders: Discharge Order (Routine); Ordered 04/17/19 Ordered By: Raheel Posey Admission Data Admit Date/Time: 04/15/19 21:54 Attending Provider: Florencio Dash Admit Provider: Luan Alexandre Primary Care Provider: Nickolas Lopez Other Providers: Ernestina Guevara ; Deyanira Amos Other Interventions: Discharge Summary Assessment (RN) Last Done: 04/17/19 14:09 DC Date/Time DO NOT enter until pt leaves facility: 04/17/19 14:46 Supervising Physician Co-Signing Physician Notes I personally examined the patient and verified all toro points of history and exam, discussed case, and agree with decision making with Dr Posey. Feeling better, no shaking no racing heart. Has a plan as far as meeting with his parents for support, continue with his counselor, and working on his life situation. Vitals noted, in general he is awake and alert pleasant no distress. HEENT normocephalic atraumatic mucous membranes moist. Breathing unlabored no accessory muscle use good effort. Skin shows no rashes no pallor or icterus. Neuro shows no focal deficits. Alcohol abusefortunately no serious withdrawal, safe to go home. Red flags outlined, but given that he is showing no withdrawal greater than 48 hours after his last drink, the likelihood of anything significant is extremely low. Depressioncontinue counseling, continue medications, continue supportive care, work on lifestyle changes. Stable for home, otherwise as above Resident Activity Tracking Resident Involvement: Resident Care Provided Care Provided: Adult Hospital Medicine
[2019-04-17 11:33] VITALS: BP 147/92; PULSE 89; TEMP 98.4; O2SAT 99
--- NOTE | 2019-04-17 15:00 | Billing Data ---
Date of Service April 17, 2019 Coding Level of Care Code D/C Day Management <30 mins
[2019-04-18 04:34] LABS: Hepatitis A Antibody IgM NON-REACTIVE (NON-REACTIVE); Hepatitis B Core Antibody IgM NON-REACTIVE (NON-REACTIVE)
== END 2019-04-17 14:46 | disposition home or self-care (01) | DRG 897 ==
LOC: ED 17:50 → SUATTDRO 21:54 → 2S 21:54